=== PATIENT | male | born 1975 | race Caucasian/White ===

== ENCOUNTER 2023-01-25 14:03 | Emergency (ER) | payer BC | END 2023-01-25 16:18 | disposition home or self-care (01) | LOC: CSHERS 14:03 | DX: F10.139 Alcohol abuse with withdrawal, unspecified (principal) | CPT/HCPCS: 80307; 96360 ==

== ENCOUNTER 2023-02-05 14:46 | Inpatient (IN) | payer BC ==
[2023-02-05] MEDS ORDERED: Lorazepam 2 MG/ML VIAL ONE (16:04)
[2023-02-05 16:08] LABS: #Basophils 0.1 10x3/uL (0.0-0.2); #Eosinphils 0.1 10x3/uL (0.0-0.5); #Monocytes 1.1 10x3/uL (0.0-1.1); #Neutrophils 6.5 10x3/uL (1.5-8.4); %Basophils 1.3 % (0.0-2.0); %Eosinophils 0.6 % (0.0-6.0); %Lymphocytes 20.9 % (18.0-47.0); %Monocytes 11.3 % (0.0-10.0); %Neutrophils 64.8 % (40.0-75.0); Hemoglobin 15.1 g/dL (13.5-17.5); Mean Corpuscular HGB CONC 33.6 g/dL (32.0-36.0); Mean Corpuscular Hemoglobin 32.1 pg (27.0-33.0); Mean Corpuscular Volume 95.3 fl (81.2-95.1); Mean Platelet Volume 10.3 fl (7.4-10.4); Platelet Count 415 10x3/uL (150-450); Red Blood Cell (RBC) Count 4.71 10x6/uL (4.32-5.72)
[2023-02-05 16:35] LABS: ALT (SGPT) 63 U/L (8-55); AST (SGOT) 43 U/L (5-34); Alkaline Phosphatase 53 U/L (40-110); Anion Gap 31 mmol/L (10-20); BUN (Urea Nitrogen) 12 mg/dL (8.9-20.6); Bilirubin, Total 0.3 mg/dL (0.2-1.2); Calc. Creatinine Clearance 0 mL/min (70-130); Calcium 10.1 mg/dL (7.8-10.44); Carbon Dioxide 11 mmol/L (22-29); Chloride 103 mmol/L (98-107); Estimated GFR 80; Globulin 3.2 g/dL (2.4-3.5); Glucose 112 mg/dL (70-105); Magnesium 2.6 mg/dL (1.6-2.6); Potassium 4.8 mmol/L (3.5-5.1); Protein, Total 8.2 g/dL (6.0-8.3); Sodium 140 mmol/L (136-145)
[2023-02-05] MEDS ORDERED: chlordiazePOXIDE HCl 5 MG CAP ONE (16:40)
[2023-02-05] MEDS ORDERED: Thiamine HCl 200 MG/2 ML VIAL SLOW IVP SCH (17:00)
[2023-02-05] MEDS ORDERED: Folic Acid 1 MG in Syringe 0 ML SC SCH (17:00)
[2023-02-05] MEDS ORDERED: Ondansetron ODT 4 MG TAB PO PRN (17:32)
[2023-02-05] MEDS ORDERED: Acetaminophen 650 MG Suppository PR PRN (17:33)
[2023-02-05] MEDS ORDERED: Ondansetron PF 4 MG/2 ML Vial IVP PRN (17:33)
[2023-02-05] MEDS ORDERED: Electrolyte Replacement Protocol 1 EACH FS SCH (17:45)
[2023-02-05 18:28] VITALS: BMI 29.5
[2023-02-05 18:32] LABS: Magnesium 2.4 mg/dL (1.6-2.6); Phosphorus 2.1 mg/dL (2.3-4.7)
[2023-02-05] MEDS: Thiamine HCl 200 MG/2 ML VIAL SLOW IVP SCH (18:47)
[2023-02-05 19:17] LABS: SARS-CoV-2 NAA Rapid Test Not Detected (NotDetected)
[2023-02-05] MEDS: Heparin 5,000 UNITS/ML VIAL SC SCH (19:42)
[2023-02-05] MEDS: chlordiazePOXIDE HCl 25 MG CAP PO SCH (19:42)
[2023-02-05 20:12] LABS: Lactic Acid 1.4 mmol/L (0.5-2.2)
[2023-02-05] MEDS ORDERED: Multivit, Therapeutic 1 TAB PO SCH (21:00)
[2023-02-06 04:10] LABS: ALT (SGPT) 47 U/L (8-55); AST (SGOT) 34 U/L (5-34); Alkaline Phosphatase 38 U/L (40-110); Anion Gap 14 mmol/L (10-20); BUN (Urea Nitrogen) 9 mg/dL (8.9-20.6); Bilirubin, Total 0.4 mg/dL (0.2-1.2); Calc. Creatinine Clearance 140 mL/min (70-130); Calcium 8.6 mg/dL (7.8-10.44); Carbon Dioxide 23 mmol/L (22-29); Chloride 105 mmol/L (98-107); Estimated GFR 110; Globulin 2.4 g/dL (2.4-3.5); Glucose 93 mg/dL (70-105); Potassium 3.2 mmol/L (3.5-5.1); Protein, Total 6.4 g/dL (6.0-8.3); Sodium 139 mmol/L (136-145)
[2023-02-06 04:14] LABS: #Basophils 0.1 10x3/uL (0.0-0.2); #Eosinphils 0.1 10x3/uL (0.0-0.5); #Monocytes 1.2 10x3/uL (0.0-1.1); #Neutrophils 5.1 10x3/uL (1.5-8.4); %Basophils 0.9 % (0.0-2.0); %Eosinophils 0.9 % (0.0-6.0); %Lymphocytes 25.3 % (18.0-47.0); %Monocytes 14.2 % (0.0-10.0); %Neutrophils 58.1 % (40.0-75.0); Hemoglobin 13.6 g/dL (13.5-17.5); Mean Corpuscular HGB CONC 33.9 g/dL (32.0-36.0); Mean Corpuscular Hemoglobin 31.1 pg (27.0-33.0); Mean Corpuscular Volume 91.8 fl (81.2-95.1); Mean Platelet Volume 9.8 fl (7.4-10.4); Platelet Count 277 10x3/uL (150-450); RBC Distribution Width 12.9 % (11.5-14.5); Red Blood Cell (RBC) Count 4.37 10x6/uL (4.32-5.72); White Blood Cell (WBC) Count 8.8 10x3/uL (3.5-10.5)
[2023-02-06] MEDS: Heparin 5,000 UNITS/ML VIAL SC SCH ×3 (07:29→21:26)
[2023-02-06] MEDS: Folic Acid 1 MG TAB PO SCH (07:29)
[2023-02-06] MEDS: chlordiazePOXIDE HCl 25 MG CAP PO SCH ×3 (07:29→21:26)
[2023-02-06] MEDS: Multivit, Therapeutic 1 TAB PO SCH (07:29)
[2023-02-06] MEDS ORDERED: Potassium Chloride 20 MEQ TAB PO SCH (08:00)
[2023-02-06] MEDS: HYDROcodone/Acetaminophen 7.5/325 mg Tablet PO PRN ×3 (08:50→22:26)
[2023-02-06] MEDS: Thiamine HCl 200 MG/2 ML VIAL SLOW IVP SCH (21:25)
[2023-02-07] MEDS: Heparin 5,000 UNITS/ML VIAL SC SCH (08:41)
[2023-02-07] MEDS: Folic Acid 1 MG TAB PO SCH (08:41)
[2023-02-07] MEDS: Multivit, Therapeutic 1 TAB PO SCH (08:42)
[2023-02-07] MEDS ORDERED: chlordiazePOXIDE HCl 25 MG CAP PO SCH ×2 (09:00→15:00)
[2023-02-07 14:06] VITALS: TEMP 99
[2023-02-07] MEDS ORDERED: chlordiazePOXIDE HCl 5 MG CAP PO SCH ×2 (15:00→21:00)
[2023-02-07 15:16] VITALS: BP 115/79
[2023-02-08] MEDS ORDERED: Lorazepam 0.5 MG TAB PO PRN (17:33)
[2023-02-08] MEDS ORDERED: Thiamine 100 MG TAB PO SCH (21:00)
== END 2023-02-07 15:58 | DRG 101 ==
LOC: SUATTDRO 14:46 → CSHERS 14:46 → CSHIMCU 18:09
PROVIDERS: ADMIT Internal Medicine; ATTEND Internal Medicine
DX: R56.9 Unspecified convulsions (principal); F10.139 Alcohol abuse with withdrawal, unspecified; E87.20 Acidosis, unspecified; Z79.899 Other long term (current) drug therapy; Z91.018 Allergy to other foods; Z98.890 Other specified postprocedural states; Z20.822 Contact with and (suspected) exposure to COVID-19
CPT/HCPCS: 36415; 70450; 71045; 72125; 80053; 83605; 83735; 84100; 84484; 85025; 93005; 94760; 96361; 96372; 96374; 96375; J1644; J2060; J3411; U0002

== ENCOUNTER 2023-05-10 18:51 | Emergency (ER) | payer BC ==
[2023-05-10 19:22] LABS: #Basophils 0.1 10x3/uL (0.0-0.2); #Eosinphils 0.1 10x3/uL (0.0-0.5); #Monocytes 0.5 10x3/uL (0.0-1.1); %Eosinophils 1.5 % (0.0-6.0); %Lymphocytes 43.2 % (18.0-47.0); %Monocytes 5.5 % (0.0-10.0); %Neutrophils 48.7 % (40.0-75.0); Hemoglobin 15.9 g/dL (13.5-17.5); Mean Corpuscular HGB CONC 35.3 g/dL (32.0-36.0); Mean Corpuscular Hemoglobin 31.4 pg (27.0-33.0); Mean Corpuscular Volume 88.8 fl (81.2-95.1); Mean Platelet Volume 8.8 fl (7.4-10.4); Platelet Count 310 10x3/uL (150-450); RBC Distribution Width 12.7 % (11.5-14.5); Red Blood Cell (RBC) Count 5.07 10x6/uL (4.32-5.72); White Blood Cell (WBC) Count 8.1 10x3/uL (3.5-10.5)
[2023-05-10] MEDS ORDERED: Multivitamins, Adult 10 ML, Thiamine HCl 100 MG, Folic Acid 1 MG in Dextrose 5 %-0.45 %... IV SCH (19:30)
[2023-05-10 19:50] LABS: ALT (SGPT) 65 U/L (8-55); AST (SGOT) 48 U/L (5-34); Acetaminophen Less than 10 mcg/mL (10.0-30.0); Albumin 4.6 g/dL (3.5-5.0); Alcohol 279.5 mg/dL (Less than 10); Alkaline Phosphatase 53 U/L (40-110); Anion Gap 22 mmol/L (10-20); BUN (Urea Nitrogen) 9 mg/dL (8.9-20.6); Bilirubin, Total 0.7 mg/dL (0.2-1.2); Calc. Creatinine Clearance 0 mL/min (70-130); Calcium 8.7 mg/dL (7.8-10.44); Carbon Dioxide 17 mmol/L (22-29); Chloride 98 mmol/L (98-107); Estimated GFR 84; Globulin 3.6 g/dL (2.4-3.5); Glucose 119 mg/dL (70-105); Potassium 3.4 mmol/L (3.5-5.1); Protein, Total 8.2 g/dL (6.0-8.3); Salicylate Less than 8.0 mg/dL (15.0-30.0); Sodium 134 mmol/L (136-145)
[2023-05-10 20:28] LABS: Bilirubin Neg (Negative); Blood, Urine Negative (Negative); Clarity Clear (Clear); Glucose, Urine (Dipstick) Normal (Negative); Ketone, Urine Negative (Negative); Leukocyte Negative (Negative); Nitrite Negative (Negative); Protein, Urine (Dipstick) Negative (Neg-Trace); Specific Gravity, Urine 1.005 (1.005-1.030); Urobilinogen Normal mg/dL (Less than 2)
[2023-05-10 20:33] LABS: Bacteria/HPF None Seen HPF (None Seen); CAUTI Indications for Culture Alt mental st,lethar; RBC/HPF 0-3 HPF (0-3); Squamous Epithelial 0-3 HPF (0-3); Urine Culture Reflex No No; WBC/HPF 0-3 HPF (0-3)
[2023-05-10 20:38] LABS: Amphetamine Not Detected (NotDetected); Barbiturates Screen Not Detected (NotDetected); Benzodiazepine Screen Detected (NotDetected); Cocaine Metabolite Screen Not Detected (NotDetected); Methadone Not Detected (NotDetected); Methamphetamine Not Detected (NotDetected); Opiate Screen Not Detected (NotDetected); Oxycodone Screen Not Detected (NotDetected); Phencyclidine (PCP) Not Detected (NotDetected); THC/Cannabinoid Screen Not Detected (NotDetected); Tricyclic Screen Not Detected (NotDetected)
== END 2023-05-10 21:25 | disposition home or self-care (01) ==
LOC: CSHERS 18:51
DX: F10.10 Alcohol abuse, uncomplicated (principal); F10.129 Alcohol abuse with intoxication, unspecified; I10 Essential (primary) hypertension; Y90.8 Blood alcohol level of 240 mg/100 ml or more
CPT/HCPCS: 80053; 80306; 80307; 81001; 85025; 96365; J3411; J7042